=== PATIENT | female | born 1970 | race Caucasian/White ===

== ENCOUNTER 2018-03-02 14:05 | Emergency (ER) | payer MEDICAID ==
[~2018-03-02] VITALS: Ht 157.5 cm; Wt 61.8 kg
[~2018-03-02 14:05] MED LIST: BENA1TAB13 PO
--- NOTE | 2018-03-02 14:20 | ERD ---
ER Documentation Chief Complaint Chief Complaint Nausea and vomiting HPI 47-year-old female with a history of hypertension presents to the ED via rescue ambulance complaining of nausea, nonbloody nonbilious emesis and diffuse pruritus after being treated at [facility] for presumed dental infection. Patient states she received Motrin, [place] and clindamycin for dental infection this morning at approximately 3 AM. Patient reports a 1 day history of right lower molar pain. After arriving home she began to feel nauseated with generalized pruritus and has had several episodes of nonbloody nonbilious emesis. Denies sore throat, throat tightness or shortness of breath. No abdominal pain or back pain. No fevers or chills. ROS All systems reviewed and are negative except as per history of present illness. Medications Home Meds Active Scripts Diphenhydramine Hcl* (Benadryl*) 25 Mg Cap, 25 MG PO Q6 PRN for ITCHING/RASH, #20 TAB Prov:CRISTY MCELROY MD 03/02/18 Reported Medications Benazepril-Hydrochlorothiazide (Benazepril-Hydrochlorothiazide) 20-12.5 Mg Tablet, 2 TAB PO DAILY, #30 TAB 06/28/17 Allergies Allergies: Coded Allergies: Penicillins (Verified Allergy, Unknown, 06/28/17) PMhx/Soc Reviewed in chart. As per HPI. History of Surgery: Yes (C/S X 3) Anesthesia Reaction: No Hx Neurological Disorder: No Hx Respiratory Disorders: No Hx Psychiatric Problems: No Hx Miscellaneous Medical Probl: No Hx Alcohol Use: No Hx Substance Use: No Hx Tobacco Use: No FmHx No eczema, allergies or atopy Physical Exam Vitals Vital Signs Date Temp Pulse Resp B/P (MAP) Pulse Ox O2 O2 Flow FiO2 Time Delivery Rate 03/02/18 104 17 169/100 100 Room Air 17:23 (123) 03/02/18 98 17 172/118 100 Room Air 15:17 (136) 03/02/18 98.6 100 17 154/100 100 14:25 (118) Physical Exam Const: No acute distress Head: Atraumatic Eyes: Normal Conjunctiva ENT: Normal External Ears, Nose and Mouth. Neck: Full range of motion. No meningismus. Resp: Clear to auscultation bilaterally Cardio: Regular rate and rhythm, no murmurs Abd: Soft, non tender, non distended. Normal bowel sounds Skin: No petechiae or rashes Back: No midline or flank tenderness Ext: No cyanosis, or edema Neur: Awake and alert Psych: Normal Mood and Affect Results 24 hrs Current Medications Medications Dose Sig/David Start Time Status Last (Trade) Ordered Route PRN Stop Time Admin Dose Reason Admin 50 mg ONCE STAT 03/02/18 DC 03/02/18 Diphenhydrami IV 14:31 14:49 ne HCl 03/02/18 14:33 (Benadryl) 125 mg ONCE STAT 03/02/18 DC 03/02/18 Methylprednis IV 14:31 14:49 olone Sodium 03/02/18 14:33 Succinate (Solu-Medrol) Sodium 1,000 ml @ Q1H STAT 03/02/18 DC 03/02/18 Chloride 1,000 mls/hr IV 14:31 14:49 03/02/18 15:30 Ondansetron 4 mg ONCE STAT 03/02/18 DC 03/02/18 HCl (Zofran IV 14:58 15:06 Inj) 03/02/18 14:59 Procedures/MDM DOCUMENTS REVIEWED: ED nurse, no prior records REEXAMINATION: Time: 1702. Doing well. Asymptomatic. No pruritus or rash. Lungs clear. MEDICAL DECISION MAKIN-year-old female with a history of hypertension presents to the ED via rescue ambulance complaining of nausea, nonbloody nonbilious emesis and diffuse pruritus after being treated at [facility] for presumed dental infection. Patient with allergic reaction reaction after taking [place] and clindamycin. As it is unclear which medication caused her reaction it is prudent to stop both medications at this time. No criteria for anaphylaxis. Patient observed in the ED for over 3 hours. Symptoms resolved with IV hydration, antihistamines, antiemetics and corticosteroids. Stable for discharge with precautionary instructions and outpatient follow-up as counseled. Counseled patient and family regarding diagnostic workup, diagnosis and need for mandatory followup tomorrow. Understands to return to ED if symptoms recur, worsen or any other concerns. Departure Diagnosis: Primary Impression: Allergic drug reaction Encounter type: initial encounter Qualified Codes: T78.40XA - Allergy, unspecified, initial encounter Condition: Stable (imptoved) CRISTY MCELROY MD Mar 02, 2018 14:20
[2018-03-02 14:25] VITALS: Ht 157.5 cm; Wt 61.8 kg
[2018-03-02] MEDS ORDERED: DIPHENHYDRAMINE 50 MG INJ IV STA (14:31)
[2018-03-02] MEDS ORDERED: SOD CHLORIDE 0.9% 1,000 ML IV STA (14:31)
[2018-03-02] MEDS ORDERED: METHYLPREDNISOLONE 125 MG INJ IV STA (14:31)
[2018-03-02] MEDS ORDERED: ONDANSETRON 4 MG INJ IV STA (14:58)
[2018-03-02] MEDS ORDERED: BEN25 PO (17:13)
[2018-03-02 17:23] VITALS: BP 169/100; PULSE 104; RESP 17
== END 2018-03-02 17:23 | disposition home or self-care (01) ==
LOC: E/R 14:05
DX: R11.2 Nausea with vomiting, unspecified (principal)
CPT/HCPCS: 96361; 96374; 96375; J1200; J2405; J2930; J7030; Z7502